=== PATIENT | female | born 1955 | race Hispanic/Latino ===

== ENCOUNTER 2022-11-02 07:16 | Day surgery (SDC) | payer MEDICARE, OTHER ==
[2022-10-31 13:32] VITALS: BMI 30.1
[~2022-11-02 07:16] MED LIST: Fluorouracil 100 MG, EPINEPHrine 0.3 MG, Dextrose 50% 3 ML in Ophthalmic Irrigation Sol... IRR SCH; Midazolam HCl 2 mg/2 ml Vial ONE; fentaNYL 50 mcg/mL 1 mL Vial ONE
[2022-11-02] MEDS ORDERED: Cyclopentolate 1% Opth Drop 2 ML BOT ONE (07:48)
[2022-11-02] MEDS ORDERED: Phenylephrine 2.5% Ophth Soln 5 ML BOT ONE (07:48)
[2022-11-02] MEDS ORDERED: Lidocaine 4% PF 5 ML AMP ONE (09:42)
[2022-11-02] MEDS ORDERED: CEFAZOLIN 1 GM VIAL ONE (09:42)
[2022-11-02] MEDS ORDERED: Maxitrol 0.1% Opth Oint 3.5 GM TUBE ONE (09:42)
[2022-11-02] MEDS ORDERED: Triamcinolone 40 MG/ML VIAL ONE (09:42)
[2022-11-02] MEDS ORDERED: Dextrose 50% Abboject 50 ML SYRINGE ONE (09:42)
[2022-11-02] MEDS ORDERED: Bupivacaine 0.75% 10 ML VIAL ONE (09:42)
[2022-11-02] MEDS ORDERED: PROPOFOL 200 MG/20 ML VIAL ONE (09:42)
[2022-11-02] MEDS ORDERED: Lidocaine 1% PF 5 ML VIAL ONE (09:42)
== END 2022-11-02 11:50 | disposition home or self-care (01) ==
LOC: SDC 07:16
PROVIDERS: ATTEND Ophthalmology Retina Specialist
PROC: 08T43ZZ Resection of Right Vitreous, Percutaneous Approach (ICD-10-PCS; principal; 2022-11-02)
DX: H33.41 Traction detachment of retina, right eye (principal); Z87.891 Personal history of nicotine dependence
CPT/HCPCS: 67108; J3010; J0171; J0690; J2250; J2704; J3301; J3490; J7999; J9190

== ENCOUNTER 2023-11-20 15:08 | Inpatient (IN) | payer MEDICARE ==
[2023-11-20 17:42] VITALS: BMI 34.8
[2023-11-20] MEDS ORDERED: Dextrose 50% Abboject 50 ML SYRINGE SLOW IVP PRN (20:34)
[2023-11-20] MEDS ORDERED: Dextrose 5% in Water 1,000 ML IV PRN (20:34)
[2023-11-20] MEDS ORDERED: Glucagon 1 MG/ML KIT IM PRN (20:34)
[2023-11-20] MEDS ORDERED: HumaLOG 300 UNITS/3 ML VIAL SC PRN (20:34)
[2023-11-20] MEDS: HumaLOG 300 UNITS/3 ML VIAL SC PRN (20:56)
[2023-11-20 22:14] LABS: Globulin 4.1 g/dL (2.4-3.5)
[2023-11-20] MEDS: Furosemide 40 MG (4 mL) VIAL SLOW IVP SCH (22:26)
[2023-11-20 22:27] LABS: ALT (SGPT) 27 U/L (8-55); AST (SGOT) 31 U/L (5-34); Albumin 2.9 g/dL (3.4-4.8); Alkaline Phosphatase 70 U/L (40-110); Anion Gap 14 mmol/L (10-20); BUN (Urea Nitrogen) 47 mg/dL (9.8-20.1); Bilirubin, Total 0.3 mg/dL (0.2-1.2); Calc. Creatinine Clearance 44 mL/min (70-130); Calcium 8.8 mg/dL (7.8-10.44); Carbon Dioxide 21 mmol/L (23-31); Chloride 97 mmol/L (98-107); Estimated GFR 30; Glucose 441 mg/dL (80-115); Potassium 5.3 mmol/L (3.5-5.1); Sodium 127 mmol/L (136-145)
[2023-11-20] MEDS: Atorvastatin Calcium 40 MG TAB PO SCH (22:27)
[2023-11-20] MEDS: Insulin Glargine 30 UNITS/0.3 ML VIAL SC SCH (23:08)
[2023-11-21] MEDS: DorzolamidE/Timolol 2%/0.5% Ophth Soln 10 ml Bottle R EYE SCH (00:19)
[2023-11-21] MEDS: Ketorolac Tromethamine 0.5% Ophth Soln 3 ml Bottle R EYE SCH (00:20)
[2023-11-21 06:31] LABS: #Basophils 0.08 10x3/uL (0.0-0.2); %Basophils 0.7 % (0.0-1.0); %Lymphocytes 24.1 % (21.0-51.0); %Monocytes 8.6 % (0.0-10.0); Hematocrit 32.6 % (36.0-47.0); Hemoglobin 10.6 g/dL (12.0-16.0); Mean Corpuscular HGB CONC 32.5 g/dL (32.0-36.0); Mean Corpuscular Hemoglobin 29.4 pg (27.0-31.0); Mean Corpuscular Volume 90.3 fL (78.0-98.0); Mean Platelet Volume 10.4 fL (7.4-10.4); Platelet Count 302 10x3/uL (130-400); RBC Distribution Width 13.4 % (11.5-14.5); Red Blood Cell (RBC) Count 3.61 mill/uL (4.20-5.40)
[2023-11-21] MEDS: HumaLOG 300 UNITS/3 ML VIAL SC PRN (06:32)
[2023-11-21] MEDS: Furosemide 40 MG (4 mL) VIAL SLOW IVP SCH (06:33)
[2023-11-21 06:49] LABS: Globulin 4.2 g/dL (2.4-3.5)
[2023-11-21 06:53] LABS: ALT (SGPT) 25 U/L (8-55); AST (SGOT) 24 U/L (5-34); Alkaline Phosphatase 77 U/L (40-110); Anion Gap 16 mmol/L (10-20); BUN (Urea Nitrogen) 50 mg/dL (9.8-20.1); Bilirubin, Total 0.4 mg/dL (0.2-1.2); Calc. Creatinine Clearance 49 mL/min (70-130); Calcium 9.1 mg/dL (7.8-10.44); Carbon Dioxide 23 mmol/L (23-31); Chloride 97 mmol/L (98-107); Estimated GFR 35; Glucose 239 mg/dL (80-115); Potassium 4.5 mmol/L (3.5-5.1); Protein, Total 7.2 g/dL (5.8-8.1); Sodium 131 mmol/L (136-145)
[2023-11-21] MEDS: Aspirin 325 MG TAB PO SCH (09:23)
[2023-11-21] MEDS: Carvedilol 3.125 MG TAB PO SCH (09:23)
[2023-11-21] MEDS: Enoxaparin 40 MG (0.4 mL) SYRINGE SC SCH (09:23)
[2023-11-21] MEDS: Empagliflozin 10 MG TAB PO SCH (09:24)
[2023-11-21] MEDS: Pantoprazole DR 40 MG TAB PO SCH (09:24)
[2023-11-21] MEDS: Insulin Glargine 30 UNITS/0.3 ML VIAL SC SCH (09:24)
[2023-11-21] MEDS: Ketorolac Tromethamine 0.5% Ophth Soln 5 ML BOT R EYE SCH ×2 (13:32→17:48)
[2023-11-21] MEDS: Atorvastatin Calcium 40 MG TAB PO SCH (21:01)
[2023-11-22 04:31] LABS: #Basophils 0.06 10x3/uL (0.0-0.2); %Basophils 0.6 % (0.0-1.0); %Eosinophils 2.4 % (0.0-10.0); %Monocytes 8.8 % (0.0-10.0); %Neutrophils 56.8 % (42.0-75.0); Hematocrit 30.4 % (36.0-47.0); Hemoglobin 9.8 g/dL (12.0-16.0); Mean Corpuscular HGB CONC 32.2 g/dL (32.0-36.0); Mean Corpuscular Hemoglobin 28.4 pg (27.0-31.0); Mean Corpuscular Volume 88.1 fL (78.0-98.0); Mean Platelet Volume 10.6 fL (7.4-10.4); Platelet Count 268 10x3/uL (130-400); RBC Distribution Width 13.3 % (11.5-14.5); Red Blood Cell (RBC) Count 3.45 mill/uL (4.20-5.40)
[2023-11-22 05:00] LABS: Globulin 3.6 g/dL (2.4-3.5)
[2023-11-22 05:05] LABS: ALT (SGPT) 21 U/L (8-55); AST (SGOT) 19 U/L (5-34); Albumin 2.7 g/dL (3.4-4.8); Alkaline Phosphatase 79 U/L (40-110); Anion Gap 17 mmol/L (10-20); BUN (Urea Nitrogen) 52 mg/dL (9.8-20.1); Bilirubin, Total 0.3 mg/dL (0.2-1.2); Calc. Creatinine Clearance 37 mL/min (70-130); Calcium 8.3 mg/dL (7.8-10.44); Carbon Dioxide 22 mmol/L (23-31); Chloride 101 mmol/L (98-107); Estimated GFR 25; Glucose 208 mg/dL (80-115); Magnesium 2.2 mg/dL (1.6-2.6); Potassium 3.9 mmol/L (3.5-5.1); Protein, Total 6.3 g/dL (5.8-8.1); Sodium 136 mmol/L (136-145)
[2023-11-22] MEDS: Insulin Glargine 30 UNITS/0.3 ML VIAL SC SCH (08:32)
[2023-11-22] MEDS ORDERED: Insulin Glargine 30 UNITS/0.3 ML VIAL SC SCH (09:00)
[2023-11-22] MEDS: Metoprolol Tartrate 5 MG (5 mL) VIAL IVP SCH ×2 (21:11→23:08)
[2023-11-22 21:48] LABS: Globulin 3.7 g/dL (2.4-3.5)
[2023-11-22 21:51] LABS: Phosphorus 4.1 mg/dL (2.3-4.7)
[2023-11-22 21:53] LABS: ALT (SGPT) 21 U/L (8-55); AST (SGOT) 19 U/L (5-34); Albumin 2.8 g/dL (3.4-4.8); Alkaline Phosphatase 82 U/L (40-110); Anion Gap 16 mmol/L (10-20); BUN (Urea Nitrogen) 55 mg/dL (9.8-20.1); Bilirubin, Total 0.3 mg/dL (0.2-1.2); Calc. Creatinine Clearance 37 mL/min (70-130); Calcium 8.6 mg/dL (7.8-10.44); Carbon Dioxide 25 mmol/L (23-31); Chloride 101 mmol/L (98-107); Estimated GFR 25; Glucose 197 mg/dL (80-115); Magnesium 2.3 mg/dL (1.6-2.6); Potassium 4.2 mmol/L (3.5-5.1); Protein, Total 6.5 g/dL (5.8-8.1); Sodium 138 mmol/L (136-145)
[2023-11-22 22:05] LABS: Critical Call Chem Troponin I NUR.BC6; Troponin I 6.602 ng/mL (< 0.028)
[2023-11-22] MEDS: Enoxaparin 60 MG (0.6 mL) SYRINGE SC SCH (22:20)
[2023-11-22] MEDS: Amiodarone 450 MG in Dextrose 5% in Water 250 ML IVPB SCH (22:20)
[2023-11-23 02:47] LABS: Critical Call Chem Troponin I RESULT DECREASING; Troponin I 6.294 ng/mL (< 0.028)
[2023-11-23] MEDS: Digoxin 0.5 MG/2 ML AMP ONE (03:24)
[2023-11-23] MEDS: Metoprolol Tartrate 5 MG (5 mL) VIAL ONE (03:24)
[2023-11-23 05:13] LABS: #Basophils 0.06 10x3/uL (0.0-0.2); %Basophils 0.6 % (0.0-1.0); %Eosinophils 1.3 % (0.0-10.0); %Lymphocytes 22.5 % (21.0-51.0); %Monocytes 7.7 % (0.0-10.0); %Neutrophils 67.3 % (42.0-75.0); Hematocrit 32.5 % (36.0-47.0); Hemoglobin 10.4 g/dL (12.0-16.0); Mean Corpuscular Hemoglobin 28.8 pg (27.0-31.0); Mean Platelet Volume 11.1 fL (7.4-10.4); Platelet Count 280 10x3/uL (130-400); RBC Distribution Width 13.7 % (11.5-14.5); Red Blood Cell (RBC) Count 3.61 mill/uL (4.20-5.40)
[2023-11-23 05:48] LABS: Anion Gap 17 mmol/L (10-20); BUN (Urea Nitrogen) 59 mg/dL (9.8-20.1); Calc. Creatinine Clearance 34 mL/min (70-130); Calcium 8.6 mg/dL (7.8-10.44); Carbon Dioxide 23 mmol/L (23-31); Chloride 100 mmol/L (98-107); Estimated GFR 23; Glucose 296 mg/dL (80-115); Potassium 4.7 mmol/L (3.5-5.1); Sodium 135 mmol/L (136-145)
[2023-11-23] MEDS: Empagliflozin 10 MG TAB PO SCH (08:24)
[2023-11-23] MEDS: Insulin Glargine 30 UNITS/0.3 ML VIAL SC SCH (08:25)
[2023-11-23] MEDS: HumaLOG 300 UNITS/3 ML VIAL SC SCH ×2 (08:36→12:12)
[2023-11-23] MEDS ORDERED: Enoxaparin 30 MG (0.3 mL) SYRINGE SC SCH (09:00)
[2023-11-23] MEDS: Amiodarone 200 MG TAB PO SCH (09:29)
[2023-11-23] MEDS: Communication Order-Pharmacy FS ONE (09:43)
[2023-11-23] MEDS: Enoxaparin 100 MG (1 mL) SYRINGE SC SCH (21:25)
[2023-11-24 04:32] LABS: #Basophils 0.06 10x3/uL (0.0-0.2); %Basophils 0.7 % (0.0-1.0); %Eosinophils 3.8 % (0.0-10.0); %Lymphocytes 32.6 % (21.0-51.0); %Monocytes 9.5 % (0.0-10.0); Hemoglobin 10.2 g/dL (12.0-16.0); Mean Corpuscular HGB CONC 31.9 g/dL (32.0-36.0); Mean Corpuscular Hemoglobin 28.5 pg (27.0-31.0); Mean Corpuscular Volume 89.4 fL (78.0-98.0); Mean Platelet Volume 10.5 fL (7.4-10.4); Platelet Count 274 10x3/uL (130-400); RBC Distribution Width 13.7 % (11.5-14.5); Red Blood Cell (RBC) Count 3.58 mill/uL (4.20-5.40)
[2023-11-24 05:05] LABS: Anion Gap 16 mmol/L (10-20); BUN (Urea Nitrogen) 54 mg/dL (9.8-20.1); Calc. Creatinine Clearance 41 mL/min (70-130); Calcium 8.6 mg/dL (7.8-10.44); Carbon Dioxide 23 mmol/L (23-31); Chloride 102 mmol/L (98-107); Estimated GFR 30; Glucose 95 mg/dL (80-115); Potassium 3.9 mmol/L (3.5-5.1); Sodium 137 mmol/L (136-145)
[2023-11-24] MEDS: Lisinopril 2.5 MG TAB PO SCH (09:07)
[2023-11-24 11:51] LABS: Phosphorus 3.5 mg/dL (2.3-4.7)
[2023-11-24 13:35] LABS: Creatinine, Urine 35.22 mg/dL (47-110)
[2023-11-24] MEDS: Milk Of Magnesia 30 ML UDCUP PO PRN (20:26)
[2023-11-25 05:47] LABS: #Basophils 0.05 10x3/uL (0.0-0.2); %Basophils 0.6 % (0.0-1.0); %Eosinophils 3.5 % (0.0-10.0); %Lymphocytes 23.9 % (21.0-51.0); %Monocytes 8.6 % (0.0-10.0); %Neutrophils 63.1 % (42.0-75.0); Hematocrit 33.7 % (36.0-47.0); Hemoglobin 10.8 g/dL (12.0-16.0); Mean Corpuscular Hemoglobin 29.6 pg (27.0-31.0); Mean Corpuscular Volume 92.3 fL (78.0-98.0); Mean Platelet Volume 10.8 fL (7.4-10.4); Platelet Count 269 10x3/uL (130-400); RBC Distribution Width 13.6 % (11.5-14.5); Red Blood Cell (RBC) Count 3.65 mill/uL (4.20-5.40)
[2023-11-25 06:18] LABS: Anion Gap 15 mmol/L (10-20); BUN (Urea Nitrogen) 53 mg/dL (9.8-20.1); Calc. Creatinine Clearance 42 mL/min (70-130); Calcium 8.6 mg/dL (7.8-10.44); Carbon Dioxide 25 mmol/L (23-31); Chloride 101 mmol/L (98-107); Estimated GFR 31; Glucose 111 mg/dL (80-115); Potassium 4.3 mmol/L (3.5-5.1); Sodium 137 mmol/L (136-145)
[2023-11-25] MEDS ORDERED: Communication Order-Pharmacy FS SCH (11:46)
[2023-11-25] MEDS ORDERED: CEFAZOLIN 2 GM in Sodium Chloride 0.9% 100 ML IVPB SCH (12:00)
[2023-11-26 05:57] LABS: #Basophils 0.05 10x3/uL (0.0-0.2); %Basophils 0.6 % (0.0-1.0); %Eosinophils 3.6 % (0.0-10.0); %Lymphocytes 24.3 % (21.0-51.0); %Monocytes 9.6 % (0.0-10.0); %Neutrophils 61.7 % (42.0-75.0); Hematocrit 34.5 % (36.0-47.0); Hemoglobin 10.7 g/dL (12.0-16.0); Mean Corpuscular Hemoglobin 28.9 pg (27.0-31.0); Mean Corpuscular Volume 93.2 fL (78.0-98.0); Mean Platelet Volume 10.6 fL (7.4-10.4); Platelet Count 223 10x3/uL (130-400); RBC Distribution Width 13.8 % (11.5-14.5)
[2023-11-26] MEDS: Insulin Glargine 30 UNITS/0.3 ML VIAL SC SCH (06:00)
[2023-11-26 06:16] LABS: Anion Gap 15 mmol/L (10-20); BUN (Urea Nitrogen) 41 mg/dL (9.8-20.1); Calc. Creatinine Clearance 49 mL/min (70-130); Calcium 8.8 mg/dL (7.8-10.44); Carbon Dioxide 23 mmol/L (23-31); Chloride 103 mmol/L (98-107); Estimated GFR 37; Glucose 91 mg/dL (80-115); Potassium 4.7 mmol/L (3.5-5.1); Sodium 136 mmol/L (136-145)
[2023-11-26] MEDS ORDERED: Dexamethasone 4 mg/ml Vial ONE (07:01)
[2023-11-26] MEDS ORDERED: PHENYLEPHRINE-NS 100 MCG/ML 10 ML SYRINGE ONE (07:01)
[2023-11-26] MEDS ORDERED: Bupivacaine PF 0.5% 30 ML VIAL ONE (07:01)
[2023-11-26] MEDS ORDERED: EPINEPHrine 1 MG/ML VIAL ONE (07:01)
[2023-11-26] MEDS ORDERED: Albumin 5% 500 ML ONE (07:02)
[2023-11-26] MEDS ORDERED: Lidocaine 2% PF 5 ML VIAL ONE (08:34)
[2023-11-26] MEDS ORDERED: fentaNYL PF 100 MCG/2 ML SYRINGE ONE (08:34)
[2023-11-26] MEDS ORDERED: Vecuronium 10 MG VIAL ONE (08:34)
[2023-11-26] MEDS ORDERED: PROPOFOL 20 ML ONE (08:35)
[2023-11-26] MEDS ORDERED: Midazolam HCl 2 mg/2 ml Vial ONE (08:36)
[2023-11-26] MEDS ORDERED: Heparin 10,000 UNITS/1 ML VIAL 30,000 UNITS in Sodium Chloride 0.9% 1,000 ML FS SCH (08:45)
[2023-11-26] MEDS ORDERED: Milrinone 10 MG/10 ML VIAL ONE (08:58)
[2023-11-26] MEDS ORDERED: Calcitriol 0.25 MCG CAP PO SCH (09:00)
[2023-11-26] MEDS ORDERED: Ondansetron ODT 4 MG TAB ONE (09:10)
[2023-11-26] MEDS ORDERED: Lidocaine 1% PF 5 ML VIAL ONE (09:10)
[2023-11-26] MEDS ORDERED: CEFAZOLIN 2 GM VIAL ONE (10:06)
[2023-11-26] MEDS ORDERED: Sodium Chloride 0.9% 100 ML ONE (10:06)
[2023-11-26] MEDS ORDERED: Magnesium 5 GM/10 ML VIAL ONE (10:17)
[2023-11-26] MEDS ORDERED: Lidocaine 2% PF 100 mg/5 ml Syringe ONE (10:17)
[2023-11-26] MEDS ORDERED: Papaverine 60 MG/2 ML VIAL ONE (10:17)
[2023-11-26] MEDS ORDERED: Calcium Chloride 1 GM/10 ML Abboject SYRINGE ONE (10:17)
[2023-11-26] MEDS ORDERED: Mannitol 12.5 GM/50 ML ONE (10:17)
[2023-11-26] MEDS ORDERED: Heparin 30,000 units/30 ml VIAL ONE (10:17)
[2023-11-26] MEDS ORDERED: Thrombin 5000 UNITS/5 ML VIAL ONE (10:17)
[2023-11-26] MEDS ORDERED: Cardioplegic Soln 1,000 ML BAG ONE (10:17)
[2023-11-26] MEDS ORDERED: Sodium Bicarb 50 mEq/50 ML VIAL ONE (10:17)
[2023-11-26] MEDS ORDERED: Vancomycin 1 GM VIAL ONE (10:17)
[2023-11-26] MEDS ORDERED: Protamine Sulfate 250 MG/25 ML VIAL ONE (10:17)
[2023-11-26] MEDS ORDERED: Potassium Chloride 60 mEq (30 mL) VIAL ONE (10:17)
[2023-11-26] MEDS ORDERED: Heparin 5,000 UNITS/ML VIAL ONE (10:17)
[2023-11-26] MEDS ORDERED: Aminocaproic Acid 5 GM/20 ML VIAL ONE (10:17)
[2023-11-26] MEDS ORDERED: NOREPINEPHRINE 8 MG/250 ML-D5W 250 ML ONE (11:34)
[2023-11-26] MEDS ORDERED: Rocuronium Bromide 10 MG/ML (10ML VIAL) ONE (11:34)
[2023-11-26] MEDS ORDERED: NEOSTIGMINE 3 MG/3 ML SYR 3 MG/3 ML SYRINGE ONE (13:14)
[2023-11-26] MEDS ORDERED: Glycopyrrolate 0.2 MG/ML 5 ML SYRINGE ONE (13:14)
[2023-11-26] MEDS ORDERED: SUGAMMADEX SODIUM 200 MG/2 ML VIAL ONE (13:20)
[2023-11-26] MEDS ORDERED: Potassium Chloride 20 MEQ (100 mL) BAG IVPB PRN (13:38)
[2023-11-26] MEDS ORDERED: Acetaminophen 325 MG TAB PO PRN (13:38)
[2023-11-26] MEDS ORDERED: Mag-Al 1200 mg/1200 mg/30 ML UDCUP PO PRN (13:38)
[2023-11-26] MEDS ORDERED: traMADol HCl 50 MG TAB PO PRN ×4 (13:38→14:19)
[2023-11-26] MEDS ORDERED: NOREPINEPHRINE 8 MG/250 ML-D5W 250 ML IVPB PRN (13:38)
[2023-11-26] MEDS ORDERED: Morphine 2 MG/ML VIAL SLOW IVP PRN (13:38)
[2023-11-26] MEDS ORDERED: Albumin 5% 12.5 GM (250 mL) BOT IVPB PRN (13:38)
[2023-11-26] MEDS ORDERED: Nitroglycerin 50 MG/250 ML BOT 250 ML IVPB PRN (13:38)
[2023-11-26] MEDS ORDERED: hydrALAZINE 20 MG/ML VIAL SLOW IVP PRN (13:38)
[2023-11-26] MEDS ORDERED: Promethazine HCl 25 MG/ML VIAL IM PRN (13:38)
[2023-11-26] MEDS ORDERED: Bisacodyl 10 MG SUPP PR PRN (13:38)
[2023-11-26 14:04] LABS: #Basophils 0.11 10x3/uL (0.0-0.2); %Basophils 0.5 % (0.0-1.0); %Eosinophils 1.4 % (0.0-10.0); %Lymphocytes 7.2 % (21.0-51.0); %Monocytes 3.5 % (0.0-10.0); %Neutrophils 82.9 % (42.0-75.0); Hematocrit 30.1 % (36.0-47.0); Hemoglobin 9.3 g/dL (12.0-16.0); Mean Corpuscular HGB CONC 30.9 g/dL (32.0-36.0); Mean Corpuscular Hemoglobin 29.3 pg (27.0-31.0); Mean Platelet Volume 10.5 fL (7.4-10.4); Platelet Count 186 10x3/uL (130-400); RBC Distribution Width 13.8 % (11.5-14.5); Red Blood Cell (RBC) Count 3.17 mill/uL (4.20-5.40)
[2023-11-26 14:11] LABS: Anion Gap 13 mmol/L (10-20); BUN (Urea Nitrogen) 34 mg/dL (9.8-20.1); Calc. Creatinine Clearance 61 mL/min (70-130); Carbon Dioxide 21 mmol/L (23-31); Chloride 110 mmol/L (98-107); Estimated GFR 48; Glucose 128 mg/dL (80-115); Potassium 5.1 mmol/L (3.5-5.1); Sodium 139 mmol/L (136-145)
[2023-11-26] MEDS ORDERED: Glucagon 1 MG/ML KIT SC PRN (14:15)
[2023-11-26] MEDS ORDERED: Insulin Reg, Human 100 UNITS in Sodium Chloride 0.9% 100 ML IVPB SCH (14:15)
[2023-11-26] MEDS ORDERED: Dextrose 5% in Water 1,000 ML IV PRN (14:15)
[2023-11-26] MEDS ORDERED: Dextrose 50% Abboject 50 ML SYRINGE SLOW IVP PRN (14:15)
[2023-11-26] MEDS: Insulin Regular 300 UNITS/3 ML VIAL SC PRN (14:20)
[2023-11-26] MEDS: Magnesium 2 GM/50 ML(in water) 2 GM in Premix 1 BAG IVPB SCH (14:20)
[2023-11-26] MEDS: D5 1/2 NS w/20 mEq KCL 1,000 ML IV SCH (14:20)
[2023-11-26] MEDS: Albumin 5% 12.5 GM (250 mL) BOT IVPB PRN (14:26)
[2023-11-26 14:33] LABS: INR-International Normal Ratio 1.4; PTT 41.3 sec (22.9-36.1)
[2023-11-26] MEDS: Post-Op Insulin Drip Protocol IVPB ONE (14:51)
[2023-11-26] MEDS: fentaNYL 50 mcg/mL 1 mL Vial SLOW IVP PRN ×2 (15:17→23:31)
[2023-11-26] MEDS: CEFAZOLIN 2 GM in Sodium Chloride 0.9% 100 ML IVPB SCH (17:02)
[2023-11-26 19:42] LABS: Hematocrit 28.2 % (36.0-47.0); Hemoglobin 8.8 g/dL (12.0-16.0)
[2023-11-26 19:50] LABS: Potassium 5.4 mmol/L (3.5-5.1)
[2023-11-26] MEDS: traMADol HCl 50 MG TAB PO PRN (20:16)
[2023-11-26] MEDS: Atorvastatin Calcium 20 MG TAB PO SCH (20:17)
[2023-11-26] MEDS: Carvedilol 3.125 MG TAB PO SCH (20:17)
[2023-11-26] MEDS: Famotidine/PF 20 mg/2ml Vial SLOW IVP SCH (20:17)
[2023-11-26] MEDS: Amiodarone 200 MG TAB PO SCH (20:17)
[2023-11-26] MEDS ORDERED: Enoxaparin 40 MG (0.4 mL) SYRINGE SC SCH (21:00)
[2023-11-26] MEDS: Ketorolac Tromethamine 0.5% Ophth Soln 5 ML BOT R EYE SCH (22:13)
[2023-11-26] MEDS: Sodium Chloride 0.9% 1,000 ML IV SCH (22:13)
[2023-11-26] MEDS: DorzolamidE/Timolol 2%/0.5% Ophth Soln 10 ml Bottle R EYE SCH (22:14)
[2023-11-27] MEDS ORDERED: Carvedilol 3.125 MG TAB PO SCH (08:00)
[2023-11-27] MEDS: Aspirin 325 MG TAB PO SCH (08:28)
[2023-11-27] MEDS: Empagliflozin 10 MG TAB PO SCH (08:28)
[2023-11-27] MEDS: Magnesium 2 GM/50 ML(in water) 2 GM in Premix 1 BAG IVPB SCH (08:29)
[2023-11-27] MEDS: Lisinopril 2.5 MG TAB PO SCH (08:30)
[2023-11-27] MEDS: Ketorolac Tromethamine 0.5% Ophth Soln 5 ML BOT R EYE SCH (08:45)
[2023-11-27] MEDS: DorzolamidE/Timolol 2%/0.5% Ophth Soln 10 ml Bottle R EYE SCH (08:45)
[2023-11-27] MEDS ORDERED: Insulin Glargine 30 UNITS/0.3 ML VIAL SC SCH (09:00)
[2023-11-27 09:07] LABS: Anion Gap 14 mmol/L (10-20); BUN (Urea Nitrogen) 36 mg/dL (9.8-20.1); Calc. Creatinine Clearance 64 mL/min (70-130); Calcium 7.7 mg/dL (7.8-10.44); Carbon Dioxide 20 mmol/L (23-31); Chloride 106 mmol/L (98-107); Estimated GFR 48; Glucose 107 mg/dL (80-115); Sodium 135 mmol/L (136-145)
[2023-11-27 09:50] LABS: #Basophils Less than 0.03 10x3/uL (0.0-0.2); #Eosinphils Less than 0.03 10x3/uL (0.0-0.7); %Basophils 0.1 % (0.0-1.0); %Lymphocytes 7.6 % (21.0-51.0); %Monocytes 5.6 % (0.0-10.0); %Neutrophils 86.2 % (42.0-75.0); Hematocrit 26.4 % (36.0-47.0); Hemoglobin 8.1 g/dL (12.0-16.0); Mean Corpuscular HGB CONC 30.7 g/dL (32.0-36.0); Mean Corpuscular Hemoglobin 29.1 pg (27.0-31.0); Mean Platelet Volume 10.7 fL (7.4-10.4); Platelet Count 178 10x3/uL (130-400); RBC Distribution Width 13.9 % (11.5-14.5); Red Blood Cell (RBC) Count 2.78 mill/uL (4.20-5.40)
[2023-11-27] MEDS: Ondansetron PF 4 MG/2 ML Vial IVP PRN (11:01)
[2023-11-27 11:34] LABS: Magnesium 3.3 mg/dL (1.6-2.6)
[2023-11-27] MEDS ORDERED: Insulin Glargine 30 UNITS/0.3 ML VIAL SC PRN (14:05)
[2023-11-27] MEDS: traMADol HCl 50 MG TAB PO PRN (16:00)
[2023-11-27] MEDS: Metoclopramide HCl 10 MG (2 mL) VIAL IVP SCH (18:54)
[2023-11-28 04:52] LABS: #Basophils Less than 0.03 10x3/uL (0.0-0.2); #Eosinphils Less than 0.03 10x3/uL (0.0-0.7); %Basophils 0.1 % (0.0-1.0); %Lymphocytes 8.9 % (21.0-51.0); %Monocytes 7.7 % (0.0-10.0); %Neutrophils 82.7 % (42.0-75.0); Hematocrit 23.9 % (36.0-47.0); Hemoglobin 7.3 g/dL (12.0-16.0); Mean Corpuscular HGB CONC 30.5 g/dL (32.0-36.0); Mean Corpuscular Hemoglobin 28.5 pg (27.0-31.0); Mean Corpuscular Volume 93.4 fL (78.0-98.0); Mean Platelet Volume 11.3 fL (7.4-10.4); Platelet Count 161 10x3/uL (130-400); RBC Distribution Width 14.2 % (11.5-14.5); Red Blood Cell (RBC) Count 2.56 mill/uL (4.20-5.40)
[2023-11-28 05:31] LABS: Globulin 2.5 g/dL (2.4-3.5)
[2023-11-28] MEDS ORDERED: Artificial Tear Sol 15 ML BOT EA EYE PRN ×2 (05:34→05:44)
[2023-11-28] MEDS ORDERED: Mineral Oil ENEMA PR PRN (05:34)
[2023-11-28] MEDS ORDERED: Milk Of Magnesia 30 ML UDCUP PO PRN (05:34)
[2023-11-28] MEDS ORDERED: traMADol HCl 50 MG TAB PO PRN ×2 (05:34)
[2023-11-28] MEDS ORDERED: diphenhydrAMINE 25 MG CAP PO PRN (05:34)
[2023-11-28] MEDS ORDERED: Nitroglycerin 0.4 MG TAB (25 Tab Bottle) SL PRN (05:34)
[2023-11-28] MEDS ORDERED: Mag-Al 1200 mg/1200 mg/30 ML UDCUP PO PRN (05:34)
[2023-11-28] MEDS ORDERED: Guaifenesin DM 100-10/5 ML UDCUP PO PRN (05:34)
[2023-11-28] MEDS ORDERED: Bisacodyl 10 MG SUPP PR PRN (05:34)
[2023-11-28] MEDS ORDERED: Bisacodyl 5 MG TAB PO PRN (05:34)
[2023-11-28 05:35] LABS: ALT (SGPT) 69 U/L (8-55); AST (SGOT) 187 U/L (5-34); Albumin 2.7 g/dL (3.4-4.8); Alkaline Phosphatase 44 U/L (40-110); Anion Gap 16 mmol/L (10-20); BUN (Urea Nitrogen) 48 mg/dL (9.8-20.1); Bilirubin, Total 0.3 mg/dL (0.2-1.2); Calc. Creatinine Clearance 49 mL/min (70-130); Calcium 7.7 mg/dL (7.8-10.44); Carbon Dioxide 20 mmol/L (23-31); Chloride 104 mmol/L (98-107); Estimated GFR 35; Glucose 120 mg/dL (80-115); Magnesium 3.8 mg/dL (1.6-2.6); Potassium 5.6 mmol/L (3.5-5.1); Protein, Total 5.2 g/dL (5.8-8.1); Sodium 134 mmol/L (136-145)
[2023-11-28] MEDS: Insulin Regular 300 UNITS/3 ML VIAL SC PRN (06:36)
[2023-11-28] MEDS: Sodium Polystyrene Sulfonate 15 GM (60 mL) BOT PO SCH (07:49)
[2023-11-28] MEDS: Carvedilol 3.125 MG TAB PO SCH (08:29)
[2023-11-28] MEDS ORDERED: Calcitriol 0.25 MCG CAP PO SCH (09:00)
[2023-11-28] MEDS ORDERED: Aspirin 325 mg Enteric Coated Tablet PO SCH (09:00)
[2023-11-28 12:12] LABS: Hematocrit 26.7 % (36.0-47.0); Hemoglobin 8.5 g/dL (12.0-16.0)
[2023-11-28] MEDS: EPOETIN ALFA-EPBX (ESRD) 10,000 UNITS/ML VIAL SC SCH (12:24)
[2023-11-28 12:36] LABS: Anion Gap 12 mmol/L (10-20); BUN (Urea Nitrogen) 50 mg/dL (9.8-20.1); Calc. Creatinine Clearance 50 mL/min (70-130); Calcium 7.7 mg/dL (7.8-10.44); Carbon Dioxide 22 mmol/L (23-31); Chloride 103 mmol/L (98-107); Estimated GFR 35; Glucose 157 mg/dL (80-115); Magnesium 3.7 mg/dL (1.6-2.6); Potassium 5.2 mmol/L (3.5-5.1); Sodium 132 mmol/L (136-145)
[2023-11-28 18:40] LABS: Anion Gap 13 mmol/L (10-20); BUN (Urea Nitrogen) 52 mg/dL (9.8-20.1); Calc. Creatinine Clearance 51 mL/min (70-130); Calcium 7.9 mg/dL (7.8-10.44); Carbon Dioxide 20 mmol/L (23-31); Chloride 101 mmol/L (98-107); Estimated GFR 36; Glucose 205 mg/dL (80-115); Potassium 4.9 mmol/L (3.5-5.1); Sodium 129 mmol/L (136-145)
[2023-11-28] MEDS: Guaifenesin DM 100-10/5 ML UDCUP PO PRN (20:03)
[2023-11-28] MEDS: Bisacodyl 5 MG TAB PO PRN (20:03)
[2023-11-29] MEDS: Famotidine/PF 20 mg/2ml Vial SLOW IVP SCH (08:20)
[2023-11-29] MEDS ORDERED: HumaLOG 300 UNITS/3 ML VIAL SC PRN (08:25)
[2023-11-29 09:09] LABS: #Basophils Less than 0.03 10x3/uL (0.0-0.2); %Basophils 0.1 % (0.0-1.0); %Eosinophils 0.3 % (0.0-10.0); %Lymphocytes 9.4 % (21.0-51.0); %Monocytes 9.3 % (0.0-10.0); %Neutrophils 80.1 % (42.0-75.0); Hematocrit 26.5 % (36.0-47.0); Hemoglobin 8.3 g/dL (12.0-16.0); Mean Corpuscular HGB CONC 31.3 g/dL (32.0-36.0); Mean Corpuscular Volume 92.7 fL (78.0-98.0); Mean Platelet Volume 10.6 fL (7.4-10.4); Platelet Count 162 10x3/uL (130-400); RBC Distribution Width 14.2 % (11.5-14.5); Red Blood Cell (RBC) Count 2.86 mill/uL (4.20-5.40)
[2023-11-29 09:17] LABS: Globulin 2.9 g/dL (2.4-3.5)
[2023-11-29 09:22] LABS: ALT (SGPT) 38 U/L (8-55); AST (SGOT) 54 U/L (5-34); Albumin 2.6 g/dL (3.4-4.8); Alkaline Phosphatase 69 U/L (40-110); Anion Gap 16 mmol/L (10-20); BUN (Urea Nitrogen) 52 mg/dL (9.8-20.1); Bilirubin, Total 0.5 mg/dL (0.2-1.2); Calc. Creatinine Clearance 54 mL/min (70-130); Calcium 7.9 mg/dL (7.8-10.44); Carbon Dioxide 22 mmol/L (23-31); Chloride 101 mmol/L (98-107); Estimated GFR 38; Glucose 188 mg/dL (80-115); Potassium 5.2 mmol/L (3.5-5.1); Protein, Total 5.5 g/dL (5.8-8.1); Sodium 134 mmol/L (136-145)
[2023-11-29] MEDS: Albumin 25% 25 GM (100 mL) BOT IVPB SCH (11:32)
[2023-11-29] MEDS: Insulin Glargine 30 UNITS/0.3 ML VIAL SC SCH (11:45)
[2023-11-29] MEDS: Sodium Polystyrene Sulfonate 15 GM (60 mL) BOT PO SCH (11:56)
[2023-11-29 12:12] LABS: Magnesium 3.6 mg/dL (1.6-2.6)
[2023-11-29 13:46] LABS: Chloride 101 mmol/L (98-107); Potassium 5.1 mmol/L (3.5-5.1); Sodium 134 mmol/L (136-145)
[2023-11-29 13:48] LABS: Glucose 203 mg/dL (80-115)
[2023-11-29 13:49] LABS: Anion Gap 15 mmol/L (10-20); Carbon Dioxide 23 mmol/L (23-31)
[2023-11-29 13:51] LABS: Calc. Creatinine Clearance 47 mL/min (70-130); Estimated GFR 33
[2023-11-29 13:52] LABS: BUN (Urea Nitrogen) 54 mg/dL (9.8-20.1)
[2023-11-29 15:19] VITALS: BMI 35.2
[2023-11-29] MEDS: HumaLOG 300 UNITS/3 ML VIAL SC PRN (16:22)
[2023-11-30 05:56] LABS: #Basophils Less than 0.03 10x3/uL (0.0-0.2); %Basophils 0.1 % (0.0-1.0); %Eosinophils 0.8 % (0.0-10.0); %Lymphocytes 12.3 % (21.0-51.0); %Monocytes 9.1 % (0.0-10.0); %Neutrophils 76.9 % (42.0-75.0); Hematocrit 26.2 % (36.0-47.0); Hemoglobin 8.4 g/dL (12.0-16.0); Mean Corpuscular HGB CONC 32.1 g/dL (32.0-36.0); Mean Corpuscular Volume 90.3 fL (78.0-98.0); Mean Platelet Volume 10.8 fL (7.4-10.4); Platelet Count 164 10x3/uL (130-400); RBC Distribution Width 14.2 % (11.5-14.5)
[2023-11-30 05:58] LABS: ALT (SGPT) 50 U/L (8-55); AST (SGOT) 86 U/L (5-34); Albumin 3.4 g/dL (3.4-4.8); Alkaline Phosphatase 141 U/L (40-110); Anion Gap 14 mmol/L (10-20); BUN (Urea Nitrogen) 57 mg/dL (9.8-20.1); Bilirubin, Total 0.6 mg/dL (0.2-1.2); Calc. Creatinine Clearance 44 mL/min (70-130); Calcium 7.7 mg/dL (7.8-10.44); Carbon Dioxide 25 mmol/L (23-31); Chloride 100 mmol/L (98-107); Estimated GFR 30; Globulin 2.2 g/dL (2.4-3.5); Glucose 220 mg/dL (80-115); Potassium 4.7 mmol/L (3.5-5.1); Protein, Total 5.6 g/dL (5.8-8.1); Sodium 134 mmol/L (136-145)
[2023-11-30] MEDS: Insulin Glargine 30 UNITS/0.3 ML VIAL SC SCH (09:24)
[2023-11-30] MEDS: Polyethylene Glycol 3350 17 GM Packet PO SCH (11:22)
[2023-11-30] MEDS: Bisacodyl 5 MG TAB PO SCH (11:22)
[2023-11-30] MEDS: Enoxaparin 30 MG (0.3 mL) SYRINGE SC SCH (11:22)
[2023-11-30 12:37] LABS: Actual Bicarbonate (HCO3a) 22.1 mEq/L (22-28); Analyzer IN Cardio OR; CO2 Tension 34.9 mmHg (35.0-45.0); Calcium, Ionized (arterial) 1.06 mmol/L (1.12-1.30); Carboxyhemoglobin (COHb) 0.7 gm% (0.0-3.0); Hematocrit-ABG 29 % (36.0-47.0); Hemoglobin (Hb) 9.7 g/dL (12.0-16.0); O2 Tension (PaO2), arterial 321.7 mmHg (> 80.0); Potassium - ABG Lab 4.09 mmol/L (3.70-5.30); pH, Arterial 7.419 (7.35-7.45)
[2023-11-30 12:37] LABS: Actual Bicarbonate (HCO3a) 24.8 mEq/L (22-28); Analyzer IN Cardio OR; Base Excess (BEa) 0.8 mEq/L (-2.0 to +3.0); CO2 Tension 37.4 mmHg (35.0-45.0); Calcium, Ionized (arterial) 1.09 mmol/L (1.12-1.30); Carboxyhemoglobin (COHb) 0.8 gm% (0.0-3.0); Hematocrit-ABG 34 % (36.0-47.0); Hemoglobin (Hb) 11.4 g/dL (12.0-16.0); O2 Tension (PaO2), arterial 181.4 mmHg (> 80.0)
[2023-11-30 12:38] LABS: Actual Bicarbonate (HCO3a) 23.5 mEq/L (22-28); Analyzer IN Cardio OR; Base Excess (BEa) -0.6 mEq/L (-2.0 to +3.0); CO2 Tension 35.6 mmHg (35.0-45.0); Calcium, Ionized (arterial) 1.18 mmol/L (1.12-1.30); Carboxyhemoglobin (COHb) 1.4 gm% (0.0-3.0); Hematocrit-ABG 21 % (36.0-47.0); O2 Tension (PaO2), arterial 270.4 mmHg (> 80.0); pH, Arterial 7.437 (7.35-7.45)
[2023-11-30 12:38] LABS: Actual Bicarbonate (HCO3a) 24.2 mEq/L (22-28); Analyzer IN Cardio OR; Base Excess (BEa) 0.4 mEq/L (-2.0 to +3.0); CO2 Tension 35.1 mmHg (35.0-45.0); Calcium, Ionized (arterial) 0.95 mmol/L (1.12-1.30); Carboxyhemoglobin (COHb) 1.4 gm% (0.0-3.0); Hematocrit-ABG 21 % (36.0-47.0); Hemoglobin (Hb) 7.3 g/dL (12.0-16.0); O2 Tension (PaO2), arterial 383.2 mmHg (> 80.0); Potassium - ABG Lab 5.69 mmol/L (3.70-5.30); pH, Arterial 7.456 (7.35-7.45)
[2023-11-30 12:38] LABS: Actual Bicarbonate (HCO3a) 25.3 mEq/L (22-28); Analyzer IN Cardio OR; Base Excess (BEa) 0.7 mEq/L (-2.0 to +3.0); CO2 Tension 40.2 mmHg (35.0-45.0); Calcium, Ionized (arterial) 0.97 mmol/L (1.12-1.30); Carboxyhemoglobin (COHb) 1.6 gm% (0.0-3.0); Hematocrit-ABG 21 % (36.0-47.0); Hemoglobin (Hb) 7.1 g/dL (12.0-16.0); O2 Tension (PaO2), arterial 322.1 mmHg (> 80.0); Potassium - ABG Lab 5.09 mmol/L (3.70-5.30); pH, Arterial 7.417 (7.35-7.45)
[2023-11-30 12:39] LABS: Actual Bicarbonate (HCO3a) 21.5 mEq/L (22-28); Analyzer IN Cardio OR; Base Excess (BEa) -4.4 mEq/L (-2.0 to +3.0); CO2 Tension 42.8 mmHg (35.0-45.0); Calcium, Ionized (arterial) 1.15 mmol/L (1.12-1.30); Carboxyhemoglobin (COHb) 0.6 gm% (0.0-3.0); Hematocrit-ABG 29 % (36.0-47.0); Hemoglobin (Hb) 9.7 g/dL (12.0-16.0); Potassium - ABG Lab 4.72 mmol/L (3.70-5.30); pH, Arterial 7.318 (7.35-7.45)
[2023-11-30] MEDS: Midodrine HCl 5 MG TAB PO SCH (15:28)
[2023-11-30] MEDS ORDERED: Melatonin 3 MG TAB PO PRN (15:55)
[2023-12-01 06:12] LABS: #Basophils 0.03 10x3/uL (0.0-0.2); %Basophils 0.2 % (0.0-1.0); %Eosinophils 1.9 % (0.0-10.0); %Lymphocytes 16.9 % (21.0-51.0); %Monocytes 10.7 % (0.0-10.0); %Neutrophils 69.4 % (42.0-75.0); Hemoglobin 8.5 g/dL (12.0-16.0); Mean Corpuscular HGB CONC 31.5 g/dL (32.0-36.0); Mean Corpuscular Hemoglobin 28.5 pg (27.0-31.0); Mean Corpuscular Volume 90.6 fL (78.0-98.0); Mean Platelet Volume 11.1 fL (7.4-10.4); Platelet Count 222 10x3/uL (130-400); RBC Distribution Width 14.3 % (11.5-14.5); Red Blood Cell (RBC) Count 2.98 mill/uL (4.20-5.40)
[2023-12-01 06:35] LABS: ALT (SGPT) 67 U/L (8-55); AST (SGOT) 94 U/L (5-34); Albumin 3.4 g/dL (3.4-4.8); Alkaline Phosphatase 172 U/L (40-110); Anion Gap 13 mmol/L (10-20); BUN (Urea Nitrogen) 56 mg/dL (9.8-20.1); Bilirubin, Total 0.7 mg/dL (0.2-1.2); Calc. Creatinine Clearance 51 mL/min (70-130); Carbon Dioxide 25 mmol/L (23-31); Chloride 101 mmol/L (98-107); Estimated GFR 36; Globulin 2.5 g/dL (2.4-3.5); Glucose 148 mg/dL (80-115); Magnesium 3.8 mg/dL (1.6-2.6); Potassium 4.4 mmol/L (3.5-5.1); Protein, Total 5.9 g/dL (5.8-8.1); Sodium 135 mmol/L (136-145)
[2023-12-01 06:55] LABS: Phosphorus 3.8 mg/dL (2.3-4.7)
[2023-12-01] MEDS: Enoxaparin 30 MG (0.3 mL) SYRINGE SC SCH (08:09)
[2023-12-01] MEDS: Polyethylene Glycol 3350 17 GM Packet PO SCH (08:10)
[2023-12-01] MEDS: Insulin Glargine 30 UNITS/0.3 ML VIAL SC SCH (08:12)
[2023-12-01] MEDS ORDERED: Carvedilol 6.25 MG TAB PO SCH (09:15)
[2023-12-01] MEDS: Carvedilol 3.125 MG TAB PO SCH ×2 (11:48→17:05)
[2023-12-02 04:30] LABS: #Basophils 0.03 10x3/uL (0.0-0.2); %Basophils 0.3 % (0.0-1.0); %Eosinophils 1.7 % (0.0-10.0); %Lymphocytes 16.6 % (21.0-51.0); %Monocytes 12.2 % (0.0-10.0); %Neutrophils 68.4 % (42.0-75.0); Hematocrit 26.6 % (36.0-47.0); Hemoglobin 8.3 g/dL (12.0-16.0); Mean Corpuscular HGB CONC 31.2 g/dL (32.0-36.0); Mean Corpuscular Hemoglobin 28.4 pg (27.0-31.0); Mean Corpuscular Volume 91.1 fL (78.0-98.0); Mean Platelet Volume 10.7 fL (7.4-10.4); Platelet Count 254 10x3/uL (130-400); RBC Distribution Width 14.3 % (11.5-14.5); Red Blood Cell (RBC) Count 2.92 mill/uL (4.20-5.40)
[2023-12-02 04:59] LABS: ALT (SGPT) 77 U/L (8-55); AST (SGOT) 101 U/L (5-34); Albumin 3.1 g/dL (3.4-4.8); Alkaline Phosphatase 163 U/L (40-110); Anion Gap 13 mmol/L (10-20); BUN (Urea Nitrogen) 47 mg/dL (9.8-20.1); Bilirubin, Total 0.8 mg/dL (0.2-1.2); Calc. Creatinine Clearance 59 mL/min (70-130); Carbon Dioxide 25 mmol/L (23-31); Chloride 102 mmol/L (98-107); Estimated GFR 42; Globulin 2.6 g/dL (2.4-3.5); Glucose 116 mg/dL (80-115); Magnesium 3.8 mg/dL (1.6-2.6); Potassium 4.5 mmol/L (3.5-5.1); Protein, Total 5.7 g/dL (5.8-8.1); Sodium 135 mmol/L (136-145)
[2023-12-02] MEDS: Enoxaparin 40 MG (0.4 mL) SYRINGE SC SCH (08:43)
[2023-12-02 12:24] VITALS: BP 157/75; TEMP 98.3
== END 2023-12-02 17:43 | DRG 235 ==
LOC: 2NO 17:20 → CCU 11-26 09:29 → 2NO 12-01 20:54
PROVIDERS: ADMIT Emergency Medicine; ATTEND Emergency Medicine
PROC: 02100Z9 Bypass Coronary Artery, One Artery from Left Internal Mammary, Open Approach (ICD-10-PCS; principal; 2023-11-26)
PROC: 021109W Bypass Coronary Artery, Two Arteries from Aorta with Autologous Venous Tissue, Open Approach (ICD-10-PCS; 2023-11-26)
PROC: 06BQ4ZZ Excision of Left Saphenous Vein, Percutaneous Endoscopic Approach (ICD-10-PCS; 2023-11-26)
PROC: 02L70CK Occlusion of Left Atrial Appendage with Extraluminal Device, Open Approach (ICD-10-PCS; 2023-11-26)
DX: I13.0 Hypertensive heart and chronic kidney disease with heart failure and stage 1 through stage 4 chronic kidney disease, or unspecified chronic kidney disease (principal); I21.4 Non-ST elevation (NSTEMI) myocardial infarction; I50.23 Acute on chronic systolic (congestive) heart failure; J96.01 Acute respiratory failure with hypoxia; E87.1 Hypo-osmolality and hyponatremia; N17.9 Acute kidney failure, unspecified; I45.89 Other specified conduction disorders; N25.81 Secondary hyperparathyroidism of renal origin; E83.41 Hypermagnesemia; I25.5 Ischemic cardiomyopathy; I34.0 Nonrheumatic mitral (valve) insufficiency; I25.10 Atherosclerotic heart disease of native coronary artery without angina pectoris; E87.5 Hyperkalemia; E11.65 Type 2 diabetes mellitus with hyperglycemia; N18.30 Chronic kidney disease, stage 3 unspecified; D63.1 Anemia in chronic kidney disease; I48.0 Paroxysmal atrial fibrillation; E78.5 Hyperlipidemia, unspecified; Z90.710 Acquired absence of both cervix and uterus; Z87.891 Personal history of nicotine dependence; Z91.199 Patient's noncompliance with other medical treatment and regimen due to unspecified reason
CPT/HCPCS: 36415; 36416; 36430; 71045; 76770; 80048; 80053; 82570; 82805; 83036; 83735; 83970; 84100; 84156; 84484; 85025; 85520; 85610; 85730; 86850; 86900; 86901; 93005; 93010; 93306; 93798; 97139; A4311; A4648; C1751; J0171; J0282; J0665; J1100; J1642; J1644; J1650; J1815; J1940; J2001; J2150; J2250; J2260; J2405; J2440; J2704; J2720; J2765; J3010; J3370; J3475; J3480; J3490; J7050; J7070; P9016; P9045; P9047; Q0162; Q5105; S0017; S0028

== ENCOUNTER 2023-12-20 00:02 | Inpatient (IN) | payer MEDICARE ==
[2023-12-20 01:14] VITALS: BMI 36.3
[2023-12-20] MEDS ORDERED: Dextrose 50% Abboject 50 ML SYRINGE SLOW IVP PRN (01:22)
[2023-12-20] MEDS ORDERED: Dextrose 5% in Water 1,000 ML IV PRN (01:22)
[2023-12-20] MEDS ORDERED: Glucagon 1 MG/ML KIT IM PRN (01:22)
[2023-12-20] MEDS ORDERED: Acetaminophen 325 MG TAB PO PRN (01:22)
[2023-12-20] MEDS ORDERED: HumaLOG 300 UNITS/3 ML VIAL SC PRN ×2 (01:24)
[2023-12-20 04:29] LABS: #Basophils 0.04 10x3/uL (0.0-0.2); %Basophils 0.6 % (0.0-1.0); %Eosinophils 9.4 % (0.0-10.0); %Lymphocytes 21.1 % (21.0-51.0); %Monocytes 9.4 % (0.0-10.0); %Neutrophils 59.1 % (42.0-75.0); Hematocrit 25.4 % (36.0-47.0); Hemoglobin 7.5 g/dL (12.0-16.0); Mean Corpuscular HGB CONC 29.5 g/dL (32.0-36.0); Mean Corpuscular Hemoglobin 27.4 pg (27.0-31.0); Mean Corpuscular Volume 92.7 fL (78.0-98.0); Mean Platelet Volume 9.5 fL (7.4-10.4); Platelet Count 271 10x3/uL (130-400); RBC Distribution Width 15.4 % (11.5-14.5); Red Blood Cell (RBC) Count 2.74 mill/uL (4.20-5.40)
[2023-12-20 04:48] LABS: ALT (SGPT) 41 U/L (8-55); AST (SGOT) 66 U/L (5-34); Albumin 2.4 g/dL (3.4-4.8); Alkaline Phosphatase 101 U/L (40-110); Anion Gap 13 mmol/L (10-20); BUN (Urea Nitrogen) 29 mg/dL (9.8-20.1); Bilirubin, Total 0.4 mg/dL (0.2-1.2); Calc. Creatinine Clearance 58 mL/min (70-130); Calcium 8.5 mg/dL (7.8-10.44); Carbon Dioxide 27 mmol/L (23-31); Chloride 104 mmol/L (98-107); Estimated GFR 41; Globulin 3.7 g/dL (2.4-3.5); Glucose 81 mg/dL (80-115); Magnesium 2.1 mg/dL (1.6-2.6); Potassium 4.7 mmol/L (3.5-5.1); Protein, Total 6.1 g/dL (5.8-8.1); Sodium 139 mmol/L (136-145)
[2023-12-20] MEDS: Furosemide 40 MG (4 mL) VIAL SLOW IVP SCH ×2 (05:20→17:05)
[2023-12-20] MEDS: Sacubitril 24MG/Valsartan 26 MG TAB PO SCH (08:40)
[2023-12-20] MEDS: Empagliflozin 10 MG TAB PO SCH (08:40)
[2023-12-20] MEDS: Aspirin 325 MG TAB PO SCH (08:40)
[2023-12-20] MEDS: Spironolactone 25 MG TAB PO SCH (08:40)
[2023-12-20] MEDS: Carvedilol 3.125 MG TAB PO SCH (08:40)
[2023-12-20] MEDS: Enoxaparin 40 MG (0.4 mL) SYRINGE SC SCH (08:41)
[2023-12-20] MEDS: DorzolamidE/Timolol 2%/0.5% Ophth Soln 10 ml Bottle R EYE SCH (08:41)
[2023-12-20] MEDS: Ketorolac Tromethamine 0.5% Ophth Soln 5 ML BOT R EYE SCH (08:41)
[2023-12-20] MEDS: Amiodarone 200 MG TAB PO SCH (08:41)
[2023-12-20] MEDS: Insulin Glargine 30 UNITS/0.3 ML VIAL SC SCH (10:17)
[2023-12-20 16:00] LABS: Hematocrit 31.7 % (36.0-47.0); Hemoglobin 9.6 g/dL (12.0-16.0)
[2023-12-20 16:11] LABS: Hematocrit 31.1 % (36.0-47.0); Hemoglobin 9.5 g/dL (12.0-16.0); Platelet Count 306 10x3/uL (130-400)
[2023-12-20] MEDS: Atorvastatin Calcium 20 MG TAB PO SCH (20:28)
[2023-12-20] MEDS: traMADol HCl 50 MG TAB PO PRN (20:33)
[2023-12-20] MEDS: Guaifenesin DM 100-10/5 ML UDCUP PO PRN (20:35)
[2023-12-21 04:21] LABS: #Basophils 0.05 10x3/uL (0.0-0.2); %Basophils 0.8 % (0.0-1.0); %Eosinophils 7.9 % (0.0-10.0); %Lymphocytes 17.3 % (21.0-51.0); %Monocytes 8.8 % (0.0-10.0); %Neutrophils 64.7 % (42.0-75.0); Hematocrit 29.6 % (36.0-47.0); Hemoglobin 9.1 g/dL (12.0-16.0); Mean Corpuscular HGB CONC 30.7 g/dL (32.0-36.0); Mean Corpuscular Hemoglobin 27.2 pg (27.0-31.0); Mean Corpuscular Volume 88.6 fL (78.0-98.0); Mean Platelet Volume 9.1 fL (7.4-10.4); Platelet Count 269 10x3/uL (130-400); RBC Distribution Width 16.6 % (11.5-14.5); Red Blood Cell (RBC) Count 3.34 mill/uL (4.20-5.40)
[2023-12-21 04:39] LABS: ALT (SGPT) 42 U/L (8-55); AST (SGOT) 57 U/L (5-34); Albumin 2.4 g/dL (3.4-4.8); Alkaline Phosphatase 100 U/L (40-110); Anion Gap 14 mmol/L (10-20); BUN (Urea Nitrogen) 32 mg/dL (9.8-20.1); Bilirubin, Total 0.5 mg/dL (0.2-1.2); Calc. Creatinine Clearance 56 mL/min (70-130); Calcium 8.5 mg/dL (7.8-10.44); Carbon Dioxide 27 mmol/L (23-31); Chloride 103 mmol/L (98-107); Estimated GFR 39; Globulin 3.7 g/dL (2.4-3.5); Glucose 131 mg/dL (80-115); Potassium 4.4 mmol/L (3.5-5.1); Protein, Total 6.1 g/dL (5.8-8.1); Sodium 140 mmol/L (136-145)
[2023-12-21 04:44] LABS: Troponin I 0.147 ng/mL (< 0.028)
[2023-12-21] MEDS: Furosemide 40 MG (4 mL) VIAL SLOW IVP SCH (11:03)
[2023-12-21] MEDS: Furosemide 20 MG TAB PO SCH (20:58)
[2023-12-21 21:59] VITALS: BP 125/76; TEMP 97.7
== END 2023-12-21 22:16 | disposition home or self-care (01) | DRG 280 ==
LOC: 2SE 00:40 → OBSVTOIN 01:22
PROVIDERS: ADMIT Student in an Organized Health Care Education/Training Program; ATTEND Student in an Organized Health Care Education/Training Program
DX: I13.0 Hypertensive heart and chronic kidney disease with heart failure and stage 1 through stage 4 chronic kidney disease, or unspecified chronic kidney disease (principal); I50.23 Acute on chronic systolic (congestive) heart failure; I21.4 Non-ST elevation (NSTEMI) myocardial infarction; J96.21 Acute and chronic respiratory failure with hypoxia; E11.22 Type 2 diabetes mellitus with diabetic chronic kidney disease; I25.10 Atherosclerotic heart disease of native coronary artery without angina pectoris; N18.32 Chronic kidney disease, stage 3b; I48.0 Paroxysmal atrial fibrillation; D64.9 Anemia, unspecified; R05.9 Cough, unspecified; E87.5 Hyperkalemia; Z95.1 Presence of aortocoronary bypass graft; Z79.82 Long term (current) use of aspirin; Z79.899 Other long term (current) drug therapy; Z79.4 Long term (current) use of insulin
CPT/HCPCS: 36415; 36416; 36430; 80053; 83735; 84484; 85025; 86850; 86900; 86901; J1650; J1815; J1940; P9016

== ENCOUNTER 2025-04-02 14:42 | Emergency (ER) | payer MEDICARE ==
[2025-04-02 16:15] LABS: #Basophils 0.05 10x3/uL (0.0-0.2); #Eosinophils 0.43 10x3/uL (0.0-0.7); #Monocytes 0.62 10x3/uL (0.11-0.59); #Neutrophils 7.34 10x3/uL (1.40-6.50); %Basophils 0.4 % (0.0-1.0); %Eosinophils 3.8 % (0.0-10.0); %Lymphocytes 25.0 % (21.0-51.0); %Monocytes 5.4 % (0.0-10.0); %Neutrophils 64.6 % (42.0-75.0); Hematocrit 17.5 % (36.0-47.0); Hemoglobin 5.4 g/dL (12.0-16.0); Mean Corpuscular Hemoglobin 28.7 pg (27.0-31.0); Mean Corpuscular Volume 93.1 fL (78.0-98.0); Platelet Count 255 10x3/uL (130-400); Red Blood Cell (RBC) Count 1.88 mill/uL (4.20-5.40); White Blood Cell (WBC) Count 11.38 10x3/uL (4.8-10.8)
[2025-04-02 16:30] LABS: ALT (SGPT) 10 U/L (Less than 34); AST (SGOT) 30 U/L (11-34); Albumin 2.8 g/dL (3.1-4.5); Alkaline Phosphatase 63 U/L (40-110); Anion Gap 15 mmol/L (10-20); BUN (Urea Nitrogen) 69 mg/dL (9.8-20.1); Bilirubin, Total 0.2 mg/dL (0.3-1.2); Calc. Creatinine Clearance 0 mL/min (70-130); Calcium 8.8 mg/dL (7.8-10.44); Carbon Dioxide 26 mmol/L (23-31); Chloride 102 mmol/L (98-107); Globulin 3.7 g/dL (2.4-3.5); Glucose 187 mg/dL (80-115); Potassium 4.0 mmol/L (3.5-5.1); Sodium 139 mmol/L (136-145)
[2025-04-02 22:06] LABS: #Basophils 0.10 10x3/uL (0.0-0.2); #Eosinophils 0.41 10x3/uL (0.0-0.7); #Monocytes 0.86 10x3/uL (0.11-0.59); #Neutrophils 6.19 10x3/uL (1.40-6.50); %Basophils 0.9 % (0.0-1.0); %Eosinophils 3.8 % (0.0-10.0); %Lymphocytes 28.5 % (21.0-51.0); %Monocytes 8.1 % (0.0-10.0); %Neutrophils 58.2 % (42.0-75.0); Hematocrit 23.9 % (36.0-47.0); Hemoglobin 7.6 g/dL (12.0-16.0); Mean Corpuscular Hemoglobin 28.7 pg (27.0-31.0); Mean Corpuscular Volume 90.2 fL (78.0-98.0); Platelet Count 192 10x3/uL (130-400); Red Blood Cell (RBC) Count 2.65 mill/uL (4.20-5.40); White Blood Cell (WBC) Count 10.65 10x3/uL (4.8-10.8)
[2025-04-02 22:18] LABS: Anion Gap 14 mmol/L (10-20); BUN (Urea Nitrogen) 68 mg/dL (9.8-20.1); Calc. Creatinine Clearance 0 mL/min (70-130); Calcium 7.8 mg/dL (7.8-10.44); Carbon Dioxide 24 mmol/L (23-31); Chloride 107 mmol/L (98-107); Glucose 149 mg/dL (80-115); Potassium 3.9 mmol/L (3.5-5.1); Sodium 141 mmol/L (136-145)
[2025-04-02 23:27] LABS: HBSAB Concentration Less than 8.00 mIU/mL; Hep B Core Total Ab NONREACTIVE (NonReactive); Hep B Core Total Index 0.11 S/CO (0-0.79); Hep B Surf Ag NONREACTIVE S/CO (NonReactive); Hep C IgG Ab NONREACTIVE S/CO (NonReactive); Hep C Index 0.07 S/CO (0-0.79)
== END 2025-04-02 22:42 | disposition home or self-care (01) ==
LOC: ERS 14:42
DX: D64.9 Anemia, unspecified (principal); E78.5 Hyperlipidemia, unspecified; E11.22 Type 2 diabetes mellitus with diabetic chronic kidney disease; N18.6 End stage renal disease; I13.2 Hypertensive heart and chronic kidney disease with heart failure and with stage 5 chronic kidney disease, or end stage renal disease; I50.9 Heart failure, unspecified; Z79.899 Other long term (current) drug therapy; Z79.82 Long term (current) use of aspirin; Z87.891 Personal history of nicotine dependence
CPT/HCPCS: 36430; 80048; 80053; 83880; 85025 ×2; 86704; 86706; 86803; 86850; 86900; 86901; 86920; 87340; 93005; 99284; P9016